=== PATIENT | male | born 1965 | race African-American/Black ===

== ENCOUNTER 2016-12-20 17:08 | Emergency (ER) | payer SELFPAY ==
[2016-12-20 17:13] VITALS: BP 106/54; PULSE 88; TEMP 98; BMI 26.6
--- NOTE | 2016-12-20 17:32 | PDOC ---
History of Present Illness - General Chief Complaint: Injury Stated Complaint: LEG PAIN AND BACK PAIN Time Seen by Provider: 12/20/16 17:22 History Source: Patient Exam Limitations: No Limitations - History of Present Illness Initial Comments: CHIEF COMPLAINT: 51 y/o afebrile male with no significant PMH c/o left foot injury today. 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 He states he can walk but not well. He denies trauma to head, fall , numbness/tingling in affected extremity. Vital signs on arrival are within normal limits. REVIEW OF SYSTEMS: GENERAL/CONSTITUTIONAL: No fever/chills. No weakness. No weight change. GENITOURINARY: No dysuria, frequency, or change in urination. MUSCULOSKELETAL: +left heel pain. No neck or back pain. SKIN: No rash or easy bruising. NEUROLOGIC: No headache, vertigo, loss of consciousness, or loss of sensation. PHYSICAL EXAM: VITAL_SIGNS: within normal limits GENERAL_APPEARANCE: alert, cooperative, mild obvious discomfort. MENTAL_STATUS: speech clear, oriented X 3, responds appropriately to questions. NEURO: motor intact and sensory intact in injured extremity. EXTREMITIES: 2+ dorsalis pedis pulse left foot. Patient can plantar flex and dorsiflex his left heel minimally. Onofre test of left calf reveal minimal plantar flexion. There is a gap in the left achilles tendon approximately 5cm superior to left calcaneus. SKIN: warm, dry, good color. Past History - Past Medical History Allergies/Adverse Reactions: Allergies Allergy/AdvReac Type Severity Reaction Status Date / Time No Known Allergies Allergy Verified 12/20/16 17:13 Home Medications: Ambulatory Orders NK [No Known Home Medication] 12/20/16 - Psycho/Social/Smoking Cessation Hx Suicidal Ideation: No Smoking History: Never smoked Information on smoking cessation initiated: No *Physical Exam - Vital Signs Last Vital Signs Temp Pulse Resp BP Pulse Ox 98 F 88 18 106/54 98 12/20/16 17:11 12/20/16 17:11 12/20/16 17:11 12/20/16 17:11 12/20/16 17:11 Procedures - Splinting Splint Location: Left: Foot Pre-Proc Neuro Vasc Exam: normal Hand-Made Type: Finger splint used as posterior Splint Type: Yes: Posterior Post-Proc Neuro Vasc Exam: normal Cristhian Bandage: yes Sling: No Complications: No Post splint xray: No Medical Decision Making - Medical Decision Making A/P: 51 y/o afebrile male with suspected left achilles heel rupture. Plan is as follows: 1. Xray left foot/ankle 2. IM Toradol The patient states he does have some relief with toradol Provided him with crutches. Put him in a make shift posterior splint with long 3/4" finger splint and 2 CRISTHIAN bandages, holding his foot in plantar flexion INstructed him to take OTC motrin every 6 hours for pain, do not bear weight, and apply ice multiple times per day. Pt instructed to call Dr. Byrne's office tomorrow to request appointment for Wednesday between 9a-noon in the hospital because he does not have insurance. The patient verbalizes understanding of all instructions, has no further questions and is awaiting discharge. *DC/Admit/Observation/Transfer Diagnosis at time of Disposition: Achilles rupture, left Qualifiers: Encounter type: initial encounter Qualified Code(s): S86.012A - Strain of left Achilles tendon, initial encounter - Discharge Dispostion Disposition: HOME Condition at time of disposition: Stable - Referrals Referrals: Julian Byrne MD [Staff Physician] - - Patient Instructions Printed Discharge Instructions: DI for Achilles Tendon Rupture, How to Use Crutches Additional Instructions: Discharge Instructions: -Please keep your foot in the position it was wrapped in the ER -Do not bear weight on your left foot -Take 600mg of over the counter Motrin or Ibuprofen every 6 hours for pain with food -Apply ice to affected area multiple times per day -Call Dr. Byrne's office tomorrow morning to schedule an appointment for Wednesday between 9am-noon - Post Discharge Activity Work/School Note: Back to Work
[2016-12-20] MEDS ORDERED: KETOROLAC TROMETHAMINE 60 MG/2 ML VIAL IM ONE (17:48)
[2016-12-20] MEDS ORDERED: KETOROLAC TROMETHAMINE 60 MG/2 ML VIAL ONE (17:54)
== END 2016-12-20 19:04 | disposition home or self-care (01) ==
LOC: JERFT 17:08
PROC: 3E0233Z Introduction of Anti-inflammatory into Muscle, Percutaneous Approach (ICD-10-PCS; principal; 2016-12-20)
PROC: 2W3RX1Z Immobilization of Left Lower Leg using Splint (ICD-10-PCS; 2016-12-20)
DX: S86.012A Strain of left Achilles tendon, initial encounter (principal); X50.0XXA Overexertion from strenuous movement or load, initial encounter; Y93.E6 Activity, residential relocation; Y92.89 Other specified places as the place of occurrence of the external cause; Y99.0 Civilian activity done for income or pay
CPT/HCPCS: 73590-TC-LT; 73610-TC-LT; 73630-TC-LT; 99281-25